=== PATIENT | female | born 1995 ===

== ENCOUNTER 2018-11-15 17:36 | Emergency (ER) | payer OTHER ==
[~2018-11-15] VITALS: Ht 162.6 cm; Wt 68.2 kg
[2018-11-15 17:38] VITALS: BP 100/53
== END 2018-11-15 18:56 | disposition home or self-care (01) ==
LOC: ER 17:37
DX: S13.4XXA Sprain of ligaments of cervical spine, initial encounter (principal); M54.6 Pain in thoracic spine; X58.XXXA Exposure to other specified factors, initial encounter; Y93.89 Activity, other specified; Y92.89 Other specified places as the place of occurrence of the external cause; Y99.8 Other external cause status
CPT/HCPCS: 99281

== ENCOUNTER 2018-11-27 10:48 | Emergency (ER) | payer SELFPAY ==
[~2018-11-27] VITALS: Ht 165.1 cm; Wt 72.4 kg
[2018-11-27 11:13] VITALS: BP 103/43
[2018-11-27] MEDS ORDERED: SULF1TAB49 PO (11:47)
== END 2018-11-27 12:01 | disposition home or self-care (01) ==
LOC: ER 10:49
DX: L03.113 Cellulitis of right upper limb (principal); L02.413 Cutaneous abscess of right upper limb; Z88.1 Allergy status to other antibiotic agents
CPT/HCPCS: 99283